=== PATIENT | female | born 1935 | race African-American/Black ===

== ENCOUNTER → 2016-07-08 | Outpatient (CLI) | payer OTHER | END | disposition home or self-care (01) | LOC: MAMMO 10:23 | PROVIDERS: ATTEND Internal Medicine | DX: Z12.31 Encounter for screening mammogram for malignant neoplasm of breast (principal) | CPT/HCPCS: G0202 ==

== ENCOUNTER → 2017-03-21 | Outpatient (CLI) | payer OTHER | END | disposition home or self-care (01) | LOC: MAMMO 13:20 | PROVIDERS: ATTEND Internal Medicine | DX: N64.4 Mastodynia (principal) | CPT/HCPCS: 76641; G0206 ==

== ENCOUNTER 2017-04-06 17:12 | Emergency (ER) | payer OTHER ==
[~2017-04-06] VITALS: Ht 167.6 cm; Wt 61.0 kg
[2017-04-07 00:12] LABS: BASOPHILS % 0.8 % (0.0-2.0); EOSINOPHILS % 2.4 % (0.0-5.0); HEMATOCRIT. 28.6 % (36.0-48.0); HEMOGLOBIN. 9.4 g/dL (12.0-16.0); LYMPHOCYTES % 35.1 % (20.0-50.0); MEAN CORPUSCULAR HEMOGLOBIN 23.9 pg (28.0-32.0); MEAN CORPUSCULAR VOLUME 72.8 fL (81.0-99.0); MEAN PLATELET VOLUME 7.8 fl (7.4-10.4); MONOCYTES % 10.5 % (2.0-8.0); NEUTROPHILS % 51.2 % (40.0-76.0); PLATELET 141 x1000/uL (130-400); RED BLOOD CELL COUNT 3.93 mill/uL (4.2-5.4); RED CELL DISTRIBUTION WIDTH 15.3 % (11.6-14.6)
[2017-04-07 00:17] LABS: CHLORIDE 105 mEq/L (98-107)
[2017-04-07 00:23] LABS: C REACTIVE PROTEIN QUANT 1.3 mg/L (0.0-3.0); CARBON DIOXIDE 29 mEq/L (21-32)
[2017-04-07 00:27] LABS: INR 1.2; PROTHROMBIN TIME 12.8 sec (9.4-11.6)
[2017-04-07 01:30] VITALS: BP 128/74
== END 2017-04-07 01:30 | disposition home or self-care (01) ==
LOC: ER 17:12
DX: I77.6 Arteritis, unspecified (principal); D72.819 Decreased white blood cell count, unspecified; R21 Rash and other nonspecific skin eruption; L29.9 Pruritus, unspecified; Z85.3 Personal history of malignant neoplasm of breast; Z88.5 Allergy status to narcotic agent
CPT/HCPCS: 36415; 80048; 85025; 85610; 85651; 86140; 93970; 99285

== ENCOUNTER 2017-05-14 09:50 | Emergency (ER) | payer OTHER ==
[~2017-05-14] VITALS: Ht 172.7 cm; Wt 70.0 kg
[~2017-05-14 09:50] MED LIST: ANAS1TAB7 PO; DULO30CA2 PO; METO-396 PO; MONT10TA21 PO
[2017-05-14 09:53] VITALS: BP 147/80
[2017-05-14] MEDS ORDERED: IBUPROFEN 400MG TABLET PO ONE (11:45)
== END 2017-05-14 12:44 | disposition home or self-care (01) ==
LOC: ER 09:52
DX: H92.01 Otalgia, right ear (principal); R09.89 Other specified symptoms and signs involving the circulatory and respiratory systems; I10 Essential (primary) hypertension; M19.90 Unspecified osteoarthritis, unspecified site; I49.9 Cardiac arrhythmia, unspecified; Z88.5 Allergy status to narcotic agent
CPT/HCPCS: 99283

== ENCOUNTER → 2017-07-14 | Outpatient (CLI) | payer OTHER | END | disposition home or self-care (01) | LOC: MAMMO 08:51 | PROVIDERS: ATTEND Internal Medicine | DX: Z12.31 Encounter for screening mammogram for malignant neoplasm of breast (principal) | CPT/HCPCS: 77067 ==

== ENCOUNTER 2018-02-08 15:19 | Inpatient (IN) | payer OTHER ==
[~2018-02-08] VITALS: Ht 167.6 cm; Wt 59.1 kg
[2018-02-08 16:43] LABS: BASOPHILS % 0.3 % (0.0-2.0); EOSINOPHILS % 0.3 % (0.0-5.0); HEMATOCRIT. 31.9 % (36.0-48.0); HEMOGLOBIN. 10.2 g/dL (12.0-16.0); LYMPHOCYTES % 15.9 % (20.0-50.0); MEAN CORPUSCULAR HEMOGLOBIN 23.5 pg (28.0-32.0); MEAN CORPUSCULAR VOLUME 73.6 fL (81.0-99.0); MEAN PLATELET VOLUME 8.8 fl (7.4-10.4); MONOCYTES % 4.4 % (2.0-8.0); NEUTROPHILS % 79.1 % (40.0-76.0); PLATELET 152 x1000/uL (130-400); RED BLOOD CELL COUNT 4.33 mill/uL (4.2-5.4); RED CELL DISTRIBUTION WIDTH 15.2 % (11.6-14.6)
[2018-02-08 16:49] LABS: CHLORIDE 101 mEq/L (98-107); INR 1.1; PROTHROMBIN TIME 11.4 sec (9.1-11.1)
[2018-02-08 17:10] LABS: CLARITY URINE CLEAR (CLEAR); COLOR URINE YELLOW (YELLOW); KETONES URINE NEGATIVE (NEGATIVE); LEUKOCYTE ESTERASE URINE NEGATIVE (NEGATIVE); NITRITE URINE NEGATIVE (NEGATIVE); OCCULT BLOOD URINE NEGATIVE (NEGATIVE); PROTEIN URINE NEGATIVE (NEGATIVE); SPECIFIC GRAVITY URINE 1.016 (1.005-1.030); UROBILINOGEN URINE 0.2 E.U./dL (0.2-1.0)
[2018-02-08 23:00] VITALS: BP 158/70
[2018-02-08 23:47] VITALS: BP 140/69
[2018-02-09] VITALS (9 sets, daily range): BP systolic 109–151; BP diastolic 58–88
[2018-02-09] MEDS ORDERED: CLONIDINE 0.1MG TABLET PO PRN (00:45)
[2018-02-09] MEDS ORDERED: ACETAMINOPHEN 325MG TABLET PO PRN (00:45)
[2018-02-09 07:26] LABS: CREATINE KINASE 59 IU/L (26-192)
[2018-02-09 07:29] LABS: CREATINE KINASE MB FRACTION < 1.0 ng/mL (0.5-3.6)
[2018-02-09] MEDS: ANASTROZOLE 1 MG TABLET PO SCH (09:18)
[2018-02-09] MEDS: METOPROLOL TARTRATE 25MG TABLET PO SCH (09:18)
[2018-02-09] MEDS: DULOXETINE HCL 30MG DR CAPSULE PO SCH (09:18)
[2018-02-09] MEDS: OMEPRAZOLE 20MG CAPSULE EXTENDED RELEASE PO SCH (09:18)
[2018-02-09] MEDS: CETIRIZINE 10MG TABLET PO SCH (13:03)
[2018-02-09 15:28] LABS: CREATINE KINASE 71 IU/L (26-192)
[2018-02-09 15:29] LABS: CREATINE KINASE MB FRACTION < 1.0 ng/mL (0.5-3.6)
[2018-02-09] MEDS: MONTELUKAST SODIUM 10MG TABLET PO SCH (18:04)
[2018-02-10] VITALS: BP 130/55
[2018-02-10 00:16] LABS: CREATINE KINASE 90 IU/L (26-192)
[2018-02-10 00:17] LABS: CREATINE KINASE MB FRACTION 1.3 ng/mL (0.5-3.6)
[2018-02-10 04:00] VITALS: BP 112/70
[2018-02-10 08:16] VITALS: BP_SYST 132; BP_SYST 152; BP_SYST 90; BP_DIAS 63; BP_DIAS 75
[2018-02-10] MEDS: ANASTROZOLE 1 MG TABLET PO SCH (08:54)
[2018-02-10] MEDS: METOPROLOL TARTRATE 25MG TABLET PO SCH (08:55)
[2018-02-10] MEDS: OMEPRAZOLE 20MG CAPSULE EXTENDED RELEASE PO SCH (08:55)
[2018-02-10] MEDS: DULOXETINE HCL 30MG DR CAPSULE PO SCH (08:55)
[2018-02-10] MEDS: CETIRIZINE 10MG TABLET PO SCH (08:58)
[2018-02-10 12:00] VITALS: BP 179/68
[2018-02-10 12:47] LABS: HEMATOCRIT 29.7 % (36.0-48.0); HEMOGLOBIN 9.6 g/dL (12.0-16.0); MEAN CORPUSCULAR HEMOGLOBIN 23.6 pg (28.0-32.0); MEAN CORPUSCULAR VOLUME 73.3 fL (81.0-99.0); PLATELET 134 x1000/uL (130-400); RED BLOOD CELL COUNT 4.06 mill/uL (4.2-5.4); RED CELL DISTRIBUTION WIDTH 15.1 % (11.6-14.6)
[2018-02-10] MEDS: ASPIRIN 81MG EC TABLET PO SCH (12:56)
[2018-02-10 13:26] LABS: CHLORIDE 108 mEq/L (98-107)
[2018-02-10 16:00] VITALS: BP 148/73
[2018-02-10] MEDS: MONTELUKAST SODIUM 10MG TABLET PO SCH (16:31)
[2018-02-10 20:00] VITALS: BP_SYST 127; BP_SYST 135; BP_SYST 137; BP_DIAS 69; BP_DIAS 70; BP_DIAS 74
[2018-02-11] VITALS: BP 135/62
[2018-02-11 08:00] VITALS: BP 157/64
[2018-02-11] MEDS: OMEPRAZOLE 20MG CAPSULE EXTENDED RELEASE PO SCH (09:02)
[2018-02-11] MEDS: DULOXETINE HCL 30MG DR CAPSULE PO SCH (09:02)
[2018-02-11] MEDS: CETIRIZINE 10MG TABLET PO SCH (09:02)
[2018-02-11] MEDS: ASPIRIN 81MG EC TABLET PO SCH (09:02)
[2018-02-11] MEDS: METOPROLOL TARTRATE 25MG TABLET PO SCH (09:03)
[2018-02-11] MEDS: ANASTROZOLE 1 MG TABLET PO SCH (10:13)
[2018-02-11 12:00] VITALS: BP_SYST 119; BP_SYST 128; BP_SYST 83; BP_DIAS 54; BP_DIAS 64; BP_DIAS 65
[2018-02-11] MEDS ORDERED: LOPHC2 MT (17:08)
[2018-02-11 17:10] VITALS: BP 131/60
== END 2018-02-11 18:02 | disposition home or self-care (01) | DRG 312 ==
LOC: ER 15:19 → 7WST 17:15 → EDBEDREQTM 17:20 → EDBEDREQ 17:20 → ENRESERV 20:53 → EDBEDREQ 21:46
PROVIDERS: ADMIT Internal Medicine; ATTEND Internal Medicine
DX: I95.1 Orthostatic hypotension (principal); E78.5 Hyperlipidemia, unspecified; I11.9 Hypertensive heart disease without heart failure; I49.1 Atrial premature depolarization; I51.7 Cardiomegaly; I25.10 Atherosclerotic heart disease of native coronary artery without angina pectoris; M54.12 Radiculopathy, cervical region; M81.0 Age-related osteoporosis without current pathological fracture; Z85.3 Personal history of malignant neoplasm of breast; Z88.5 Allergy status to narcotic agent
CPT/HCPCS: 36415; 70450; 71045; 80048; 80053; 81003; 82550; 82553; 83880; 84484; 85025; 85027; 85610; 85651; 93005; 93306; 93880; 97162; 99285

== ENCOUNTER → 2019-10-25 | Outpatient (CLI) | payer OTHER ==
[~2019-10-25] MED LIST changes: +LOPHC2 MT
== END | disposition home or self-care (01) ==
LOC: LAB 09:45
PROVIDERS: ATTEND Internal Medicine
DX: Z03.818 Encounter for observation for suspected exposure to other biological agents ruled out (principal)
CPT/HCPCS: U0003-CS